=== PATIENT | male | born 2000 | race Two or more races ===

== ENCOUNTER 2020-02-27 23:17 | Emergency (ER) | payer MEDICAID ==
[~2020-02-27] VITALS: Ht 175.3 cm; Wt 60.0 kg
[2020-02-27 23:20] VITALS: BP 132/81
--- NOTE | 2020-02-27 23:35 | NUR ---
VERY POOR HISTORIAN BIB BY REILLY FROM 03-27 IN [facility]. REILLY STATES THAT PT CALLED THEM AND REQUESTED TO COME TO [place] HE HAS BEEN DIAGNOSED WITH SCHIZOPHRENIA BUT DOES NOT TAKE MEDS. FLIGHT OF IDEAS AND DIFFICULT HISTORIAN. PT CONCERNED THAT HE WILL HALLUCINATE IF HE GETS COLD. CURRENTLY DENIES HI/SI. ASKED HEIGHT AND PT STATES 7'2". NO FURTHER INFO GAINED FROM PT AT THIS TIME. Pt reports he has been hallucinating and does not want to be a problem for other people. Pt does have a large blister on the heel of his right foot. Pt reports he has a psychiatric hx but does not take his pills. Pt placed in safe room and placed in gown.
--- NOTE | 2020-02-27 23:54 | NUR ---
JORGITO needed in order to intiate telepsych consult.
[2020-02-27 23:59] LABS: BASOPHILS # (AUTO) 0.05 x10^3/uL (0-0.3); BASOPHILS % (AUTO) 0 % (0-1); EOSINOPHILS # (AUTO) 0.15 x10^3/uL (0-0.8); EOSINOPHILS % (AUTO) 1 % (1-7); LYMPHOCYTES # (AUTO) 3.32 x10^3/uL (1-6.1); LYMPHOCYTES % (AUTO) 32 % (22-44); MD NO; MEAN CORPUSCULAR HEMOGLOBIN 30.6 pg (27.5-34.5); MEAN CORPUSCULAR HGB CONC 33.9 g/dL (33.2-36.2); MEAN CORPUSCULAR VOLUME 90.1 fL (81-97); MEAN PLATELET VOLUME 7.8 fL (7.4-10.4); MONOCYTES # (AUTO) 0.67 x10^3/uL (0-1.4); MONOCYTES % (AUTO) 6 % (2-9); NEUTROPHILS # (AUTO) 6.32 x10^3/uL (1.8-8.0); NEUTROPHILS % (AUTO) 60 % (42-75); PLATELET COUNT 287 x10^3/uL (130-400); RED BLOOD COUNT 5.36 x10^6/uL (4.38-5.82); RED CELL DISTRIBUTION WIDTH 12.4 % (9.4-14.8)
[2020-02-28 00:10] LABS: ALBUMIN 3.9 g/dL (3.4-5.0); ANION GAP 5 mmol/L (5-15); CALCIUM 8.8 mg/dL (8.5-10.1); CHLORIDE 107 mmol/L (98-107); CREATININE 1.08 mg/dL (0.7-1.3)
[2020-02-28 00:11] LABS: SALICYLATE LEVEL < 1.7 mg/dL (2.8-20.0)
[2020-02-28] MEDS ORDERED: ZIPRASIDONE 20 MG INJ IM ONE ×2 (00:12→00:30)
--- NOTE | 2020-02-28 00:41 | NUR ---
Pt unable to provide UA sample, pt given tissues.
--- NOTE | 2020-02-28 01:32 | NUR ---
PT RESTING ON MILE CHOI, PT TEARFUL ABOUT "PAYING ATTENTION." PT STS HE WILL CALM DOWN. PT STS NO NEEDS AT THIS TIME
--- NOTE | 2020-02-28 03:08 | NUR ---
PT RESTING ON GURNEY AT THIS TIME, NO NEEDS EXPRESSED.
--- NOTE | 2020-02-28 03:23 | NUR ---
Telepsych paged for eval.
--- NOTE | 2020-02-28 03:26 | NUR ---
[facility]ER[facility] NOW IN ROOM AWAITING TELEPSYCH
--- NOTE | 2020-02-28 03:35 | NUR ---
PT PROVIDED WITH ICE WATER AND EDUCATED ON TELEPSYCH PROCESS.
--- NOTE | 2020-02-28 04:35 | NUR ---
PT SLEEPING ON GURNEY NO NEEDS AT THIS TIME
--- NOTE | 2020-02-28 05:46 | NUR ---
PT SLEEPING ON GURNEY NO NEEDS AT THIS TIME
--- NOTE | 2020-02-28 06:16 | NUR ---
PT STILL ASLEEP AWAITING TELEPSYCH CONSULT AT THIS TIME
--- NOTE | 2020-02-28 07:19 | NUR ---
PT RESTING ON GURNEY AT THIS TIME, VISIBLE CHEST RISE AND FALL NOTED. PT WITH TELE PSYCH MONITOR IN RM, PER NOC REPORT EVAL COMPLETED, TELE MONITOR REMOVED FROM RM, PT SHOES AND PANTS, WALLET REMOVED FROM RM AND PLACED IN LABELED PT BELONGING BAG AT THIS TIME, BAG TO LOCKER, SITTER IN PLACE, SI PRECAUTIONS OBSERVED
--- NOTE | 2020-02-28 07:53 | NUR ---
THROUGHPUT: PACKET FAXED TO [facility], [facility].
--- NOTE | 2020-02-28 08:28 | NUR ---
UA/UDS COLLECTED AND WALKED TO LAB. PT GIVEN MEAL TRAY
[2020-02-28 08:35] LABS: MICROSCOPIC NOT IND
[2020-02-28 09:13] LABS: AMPHETAMINE SCREEN, URINE Positive (Negative); BARBITURATE SCREEN, URINE Negative (Negative); BENZODIAZEPINE SCREEN, URINE Negative (Negative); CANNABINOID SCREEN, URINE Positive (Negative); COCAINE SCREEN, URINE Negative (Negative); METHADONE SCREEN, URINE Negative (Negative); OPIATE SCREEN, URINE Negative (Negative)
--- NOTE | 2020-02-28 09:45 | NUR ---
REPORT TO JAYA MAHAN, AWAITING TRANSPORT STAFF
== END 2020-02-28 11:00 ==
LOC: ED 02-28 08:03
DX: F20.1 Disorganized schizophrenia (principal); Z72.9 Problem related to lifestyle, unspecified
CPT/HCPCS: 36415; 80048; 80307; 81003; 82040; 85025; 99285

== ENCOUNTER 2020-02-28 10:07 | Inpatient (IN) | payer MEDICAID ==
[~2020-02-28] VITALS: Ht 175.3 cm; Wt 59.4 kg
[2020-02-28] MEDS ORDERED: BISACODYL 10 MG SUPP PR PRN (10:30)
[2020-02-28] MEDS ORDERED: POLYETHYLENE GLYCOL 17 GM PACKET PO PRN (10:30)
[2020-02-28] MEDS ORDERED: ONDANSETRON ODT 4 MG PO PRN (10:30)
[2020-02-28] MEDS ORDERED: DOCUSATE 100 MG CAPSULE PO PRN (10:30)
[2020-02-28] MEDS ORDERED: ACETAMINOPHEN 325 MG TABLET PO PRN (10:30)
[2020-02-28 10:45] VITALS: BP 119/84
[2020-02-28] MEDS ORDERED: LORazepam 1MG TABLET PO PRN (11:00)
[2020-02-28] MEDS ORDERED: OLANZAPINE 5 MG TABLET PO PRN (11:00)
[2020-02-28] MEDS ORDERED: PLEASE ENTER HEIGHT AND WEIGHT MC SCH ×2 (11:00→11:30)
[2020-02-28 11:34] VITALS: BP 119/84
[2020-02-28 13:16] LABS: CHOL/HDL RATIO 1.7; FREE T4 (FREE THYROXINE) 1.47 ng/dL (0.76-1.46); LDL/HDL RATIO 0.3 (0.5-3.0)
[2020-02-28 19:11] VITALS: BP 112/68
[2020-02-28] MEDS: OLANZAPINE 5 MG TABLET PO SCH (21:25)
[2020-02-29 05:48] LABS: CHLORIDE 109 mmol/L (98-107); MEAN CORPUSCULAR HEMOGLOBIN 30.9 pg (27.5-34.5); MEAN CORPUSCULAR VOLUME 90.9 fL (81-97); MEAN PLATELET VOLUME 7.9 fL (7.4-10.4); PLATELET COUNT 261 x10^3/uL (130-400); RED BLOOD COUNT 5.13 x10^6/uL (4.38-5.82); RED CELL DISTRIBUTION WIDTH 12.2 % (9.4-14.8)
[2020-02-29 05:52] LABS: ALBUMIN 3.2 g/dL (3.4-5.0); ANION GAP 6 mmol/L (5-15); CREATININE 0.91 mg/dL (0.7-1.3)
[2020-02-29 05:54] LABS: MICROSCOPIC NOT IND
[2020-02-29 06:24] LABS: MD YES
[2020-02-29 06:27] LABS: EOS#(MANUAL) 0.39 x10^3/uL (0.0-0.8); EOS% (MANUAL) 5 % (1-7); LYMPH#(MANUAL) 3.85 x10^3/uL (1-6.1); LYMPHS% (MANUAL) 50 % (22-44); MONOS#(MANUAL) 0.69 x10^3/uL (0.3-2.7); MONOS% (MANUAL) 9 % (2-9); REACTIVE LYMPHS # (MANUAL) 0.62 x10^3/uL (0-0); REACTIVE LYMPHS % (MANUAL) 8 % (0-0); SEG#(MANUAL) 2.16 x10^3/uL (1.8-8); SEGS% (MANUAL) 28 % (42-75)
[2020-02-29 06:28] LABS: <PLATELET ESTIMATE> ADEQUATE; <PLT MORPHOLOGY> NORMAL PLT MORPH; <RBC MORPHOLOGY> NORMAL
[2020-02-29 07:00] VITALS: BP 107/54
[2020-02-29] MEDS: OLANZAPINE 5 MG TABLET PO SCH ×2 (09:00→21:23)
[2020-02-29 19:30] VITALS: BP 108/70
[2020-03-01 07:51] VITALS: BP 113/74
[2020-03-01] MEDS: OLANZAPINE 5 MG TABLET PO SCH ×2 (08:39→21:03)
[2020-03-01 20:00] VITALS: BP 116/70
[2020-03-02 07:25] VITALS: BP 123/77
[2020-03-02] MEDS: OLANZAPINE 5 MG TABLET PO SCH ×2 (08:29→20:37)
[2020-03-02 19:30] VITALS: BP 124/81
[2020-03-03 07:30] VITALS: BP 120/80
[2020-03-03] MEDS: OLANZAPINE 5 MG TABLET PO SCH ×2 (09:01→20:35)
[2020-03-03 19:43] VITALS: BP 117/74
[2020-03-04 07:25] VITALS: BP 113/73
[2020-03-04] MEDS: OLANZAPINE 5 MG TABLET PO SCH ×2 (08:57→20:57)
[2020-03-04 19:08] VITALS: BP 130/86
[2020-03-05] MEDS ORDERED: OLAN5TAB9 PO (08:12)
[2020-03-05] MEDS: OLANZAPINE 5 MG TABLET PO SCH (08:20)
== END 2020-03-05 09:45 | disposition home or self-care (01) | DRG 751 ==
LOC: 3E 10:50
PROVIDERS: ADMIT Psychiatry & Neurology Psychosomatic Medicine; ATTEND Psychiatry & Neurology Psychosomatic Medicine
PROC: 0T9B70Z Drainage of Bladder with Drainage Device, Via Natural or Artificial Opening (ICD-10-PCS; principal; 2020-02-29)
DX: F23 Brief psychotic disorder (principal); F15.20 Other stimulant dependence, uncomplicated; F17.200 Nicotine dependence, unspecified, uncomplicated; S90.822A Blister (nonthermal), left foot, initial encounter; F12.90 Cannabis use, unspecified, uncomplicated; Z59.0 Homelessness; Z91.14 Patient's other noncompliance with medication regimen
CPT/HCPCS: 36415; 71045; 80048; 80061; 80069; 80307; 81003; 82040; 82140; 83735; 84439; 84443; 84481; 85025; 93005; 99285

== ENCOUNTER 2020-03-11 16:19 | Emergency (ER) | payer MEDICAID ==
[~2020-03-11] VITALS: Ht 170.2 cm; Wt 65.0 kg
[~2020-03-11 16:19] MED LIST: OLAN5TAB9 PO
[2020-03-11 16:32] VITALS: BP 117/79
--- NOTE | 2020-03-11 16:35 | NUR ---
PT BIB EMS FOR AGITATION. PT STATES HE IS "STARVING AND HOMELESS" WANTS TO GO BACK TO HIS TENT. PT FRUSTRATED. CLENCHING FIST. NO COOPERATIVE. DENIES SI OR WANTING TO HARM OTHERS. DENIES COUGH, CP, SOB, FEVERS.
--- NOTE | 2020-03-11 17:37 | NUR ---
ORDERED MEAL TRAY PER MD APPROVAL
== END 2020-03-11 18:10 | disposition home or self-care (01) ==
LOC: ED 17:19
DX: F15.159 Other stimulant abuse with stimulant-induced psychotic disorder, unspecified (principal); F22 Delusional disorders
CPT/HCPCS: 99283

== ENCOUNTER 2020-03-27 06:25 | Emergency (ER) | payer MEDICAID ==
[~2020-03-27] VITALS: Ht 170.2 cm; Wt 65.0 kg
[2020-03-27 06:38] VITALS: BP 130/86
--- NOTE | 2020-03-27 06:43 | NUR ---
19Y M BIB EMS FROM [facility], PT WAS RUNNING IN AND OUT OF TRAFFIC TO MESS WITH THE DRIVERS. PT STS HE IS STILL TAKING HIS METH. PT DENIES ALL SI/ HI. PT ARRIVED WITH LEGAL HOLD IN PLACE. PT HAS NO MEDICAL CONCERNS AT THIS TIME. PT REQUESTING HEADPHONES AND SNACKS
--- NOTE | 2020-03-27 07:20 | NUR ---
PT RESTING ON GURNEY AT THIS TIME, VISIBLE CHEST RISE AND FALL NOTED. NAD NOTED
--- NOTE | 2020-03-27 10:25 | NUR ---
PT REMAINS SLEEPING ON GURNEY, VISIBLE CHEST RISE AND FALL NOTED, DIFFICULT TO ARROUSE HE QUICKLY FALLS BACK TO SLEEP.
--- NOTE | 2020-03-27 12:28 | NUR ---
PT EVAL BY PSYCH FISHER SEAL COMPLETED. PT CONTINUES TO DENY SI/HI. LEGAL HOLD DECERTIFIED PER FISHER SEAL. WILL DC AFTER MEAL TRAY COMPLETED PER ERMD REQUEST
== END 2020-03-27 12:48 | disposition home or self-care (01) ==
LOC: ED 08:49
DX: F20.9 Schizophrenia, unspecified (principal); F15.10 Other stimulant abuse, uncomplicated; Z72.9 Problem related to lifestyle, unspecified
CPT/HCPCS: 80307; 99283; 99284